=== PATIENT | female | born 2005 | race African-American/Black ===

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

== ENCOUNTER 2024-03-01 08:16 | Emergency (ER) | payer BC, OTHER, SELFPAY | END 2024-03-01 10:11 | disposition home or self-care (01) | LOC: ERS 08:16 | DX: L03.211 Cellulitis of face (principal); Z55.6 Problems related to health literacy | CPT/HCPCS: 99283 ==